=== PATIENT | male | born 1980 | race Two or more races ===

== ENCOUNTER 2024-06-29 10:26 | Emergency (ER) | payer MEDICAID, OTHER ==
[~2024-06-29] VITALS: Ht 180.3 cm; Wt 97.5 kg
[2024-06-29 11:12] VITALS: BP 120/93; PULSE 89; RESP 16; O2SAT 99
--- NOTE | 2024-06-29 14:00 | ED.PDOC ---
Musculoskeletal HPI Comments 44 year old male presents to the ED with a chief complaint of LT leg pain onset 3 days. Patient states he began experiencing LT leg/ calf pain 3 days ago. He noticed he had increased his walking prior to pain. He was diagnosed with DVT LT leg about 2 years ago, was prescribed Eliquis, stopped taking it about 1 year ago. PMHx DVT, DM. Denies injury, trauma, fall, chest pain, shortness of breath, dizziness. No other symptoms or modifying factors present at this time. Chief Complaint: Lower Extremity Time Seen by MD: 13:53 Primary Care Provider: MELONIE Hernandez Notes: Medications, Allergies Allergies: Coded Allergies: NO KNOWN ALLERGIES (Unverified , 06/29/24) Information Source: Patient Mode of Arrival: Ambulatory Location: Left Extremity Location: Calf Timing: Days Prehospital treatment: None Severity: Moderate Able to Move Extremity: Yes Bear Weight: Limited Pain: Moderate Mechanism: None Onset of Symptoms: Spontaneous Symptoms: Pain DVT Risk Factors: DVT Associated signs and symptoms: Leg pain Past Medical History PAST MEDICAL HISTORY: DM Past Medical History (Other): DVT Surgical History: Denies all surgeries Family History Family History: Reviewed,noncontributory to illness, No family hx of Cancer, No family hx of DM, No family hx of Heart diane, No family hx of HTN, No family hx ofKidney diane, No family hx of Liver diane, No family hx of Lung diane, No family hx of Stroke Social History Smoker: Non-Smoker Alcohol: Denies ETOH Use Drugs: Denies Drug Use Lives In: Home Constitutional: denies: chills, diaphoresis, fatigue, fever, malaise, sweats, weakness, others EENTM: denies: blurred vision, double vision, ear bleeding, ear discharge, ear drainage, ear pain, ear ringing, eye pain, eye redness, hearing loss, mouth pain, mouth swelling, nasal discharge, nose bleeding, nose congestion, nose pain, photophobia, tearing, throat pain, throat swelling, voice changes, others Respiratory: denies: cough, hemoptysis, orthopnea, SOB at rest, shortness of breath, SOB with excertion, stridor, wheezing, others Cardiovascular: denies: chest pain, dizzy spells, diaphoresis, Dyspnea on exertion, edema, irregular heart beat, left arm pain, lightheadedness, palpitations, PND, syncope, others Gastrointestinal: denies: abdomen distended, abdominal pain, blood streaked bowels, constipated, diarrhea, dysphagia, difficulty swallowing, hematemesis, melena, nausea, poor appetite, poor fluid intake, rectal bleeding, rectal pain, vomiting, others Genitourinary: denies: burning, dysuria, flank pain, frequency, hematuria, incontinence, penile discharge, penile sore, pain, testicle pain, testicle swelling, urgency, others Neurological: denies: dizziness, fainting, headache, left sided numbness, left sided weakness, numbness, paresthesia, pre-existing deficit, right sided numbness, right sided weakness, seizure, speech problems, tingling, tremors, weakness, others Musculoskeletal: reports: others (LT leg pain); denies: back pain, gout, joint pain, joint swelling, muscle pain, muscle stiffness, neck pain Integumetry: denies: bruises, change in color, change in hair/nails, dryness, laceration, lesions, lumps, rash, wounds, others Allergic/Immunocompromised: denies: Difficulty Healing, Frequent Infections, Hives, Itching, others Hematologic/Lymphatic: denies: anemia, blood clots, easy bleeding, easy bruising, swollen glands, others Endocrine: denies: excessive hunger, excessive sweating, excessive thirst, excessive urination, flushing, intolerance to cold, intolerance to heat, unexplained weight gain, unexplained weight loss, others Psychiatric: denies: anxiety, bipolar disorder, depression, hopeless, panic disorder, schizophrenia, sleepless, suicidal, others All Other Systems: Reviewed and Negative Physical Exam General Appearance: No Apparent Distress, Normal HEENT: Normal ENT Inspection, Pharynx Normal, TMs Normal Neck: Full Range of Motion, Non-Tender, Normal, Normal Inspection Respiratory: Chest Non-Tender, Lungs Clear, No Accessory Muscle Use, No Respiratory Distress, Normal Breath Sounds Cardiovascular: No Edema, No JVD, No Murmur, No Gallop, Normal Peripheral Pulses, Regular Rate/Rhythm Breast Exam: Deferred Gastrointestinal: No Organomegaly, Non Tender, No Pulsatile Mass, Normal Bowel Sounds, Soft Genitalia: Deferred Pelvic: Deferred Rectal: Deferred Extremities: No calf tenderness, Normal capillary refill, Normal inspection, Normal range of motion, No pedal edema, Other (Tender but not indurated not swollen and no Fahad left leg patient had history of DVT to the right leg) Musculoskeletal : Apperance: Normal Neurologic: Alert, 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 Was a procedure done?: No Differential Diagnosis EXT Differential Diagnosis: Deep Vein Thrombosis, Sprain, Strain X-Ray, Labs, Meds, VS Vital Signs Date Time Temp Pulse Resp B/P (MAP) Pulse Ox O2 Delivery O2 Flow Rate FiO2 06/29/24 12:25 Room Air* 0 21 06/29/24 11:12 89 16 120/93 (102) 99 06/29/24 10:33 97.9 89 16 134/90 (105) 98 X-Ray, Labs, Meds, VS Comment Course in the emergency department eventful patient came in complaining of pain to his left cough Ultrasound negative for DVT Patient will have some hot soaks and anti-inflammatory is Time of 1ST Reevaluation: 14:23 Reevaluation 1ST: Unchanged Patient Education/Counseling: Diagnosis, Treatment, Prognosis Family Education/Counseling: No Family Present Departure 1 Departure Time of Disposition: 15:52 Impression: Primary Impression: Sprain of left lower leg Qualified Codes: S83.92XA - Sprain of unspecified site of left knee, initial encounter Disposition: HOME / SELF CARE / HOMELESS Condition: Good Additional Instructions: Local heat and follow up with your PCP e-Prescriptions Cyclobenzaprine Hcl (Cyclobenzaprine Hcl) 10 Mg Tab 10 MG PO TID for 10 Days, #30 TAB Prov: ZARA MCNALLY MD 06/29/24 Diclofenac Potassium (Diclofenac Potassium) 50 Mg Tab 1 TAB PO TIDP for 10 Days, #30 TAB Prov: ZARA MCNALLY MD 06/29/24 Discharged With: Self Critical Care Note Critical Care Time?: No Stability Stability form required: No Heart Score Heart Score: Heart Score Response (Comments) Value History N/A 0 EKG N/A 0 Age <45 0 Risk Factors No known risk factors 0 Troponin N/A 0 Total 0 I personally scribed for ZARA MCNALLY MD ([email or web address]) on 06/29/24 at 14:00. Electronically submitted by Miguelina Melchor ([email or web address]). ZARA MCNALLY MD Jun 29, 2024 14:00
--- NOTE | 2024-06-29 15:21 | DVH ---
Procedure: US LT Lower DVT Study Date and Requested Time: 06/29/2024 02:49 PM History: DVT Comparison: None Technique: Multiple high resolution carrillo-scale images with and without compression obtained of the le ft lower extremity veins, including the common femoral vein, deep femoral vein, proximal mid and dist al superficial femoral vein, and popliteal vein. Additional limited images of the greater saphenous v ein also obtained. Augmentation performed as indicated. Color and spectral doppler flow images obtain ed as indicated. Findings: No visible intraluminal venous thrombus. No evidence of incompressibility or abnormal color or spectr al Doppler flow visualized in the left lower extremity veins including, the common femoral vein, deep femoral vein, proximal mid and distal superficial femoral vein, and popliteal vein. Greater saphenou s vein grossly unremarkable. Impression: No sonographic evidence of left lower extremity deep venous thrombosis.
[2024-06-29] MEDS ORDERED: CYCL-839 PO (15:54)
[2024-06-29] MEDS ORDERED: DICL50TA2 PO (15:54)
== END 2024-06-29 16:36 | disposition home or self-care (01) ==
LOC: ER 10:26
DX: S83.92XA Sprain of unspecified site of left knee, initial encounter (principal); E11.9 Type 2 diabetes mellitus without complications; X58.XXXA Exposure to other specified factors, initial encounter; Y93.89 Activity, other specified; Y92.89 Other specified places as the place of occurrence of the external cause; Y99.8 Other external cause status
CPT/HCPCS: 93971

== ENCOUNTER 2025-01-08 16:32 | Inpatient (IN) | payer MEDICAID ==
[~2025-01-08] VITALS: Ht 180.3 cm; Wt 103.0 kg
[~2025-01-08 16:32] MED LIST: CYCL-839 PO; DICL50TA2 PO
--- NOTE | 2025-01-08 17:59 | DVH ---
CHEST RADIOGRAPH Indication: dizzy, L shoulder pain Technique: Single frontal view of the chest was obtained Comparison: None FINDINGS: Lines and Tubes: None Lungs: No focal consolidation. Pleura: No effusion. No pneumothorax. Cardiomediastinal contours: Unremarkable Bones: No acute osseous abnormality. IMPRESSION: No acute cardiopulmonary disease.
[2025-01-08 18:01] LABS: Hematocrit 44.9 % (41.0-53.0); Hemoglobin 15.7 g/dL (13.5-17.5); Mean Corpuscular Hemoglobin 29.8 pg (28.0-32.0); Mean Corpuscular Volume 85.1 fL (80.0-100.0); Nucleated Red Blood Cells % 0.3 %
[2025-01-08 18:10] LABS: Chloride 102 mmol/L (98-107); Potassium 4.5 mmol/L (3.5-5.1); Sodium 140 mmol/L (136-145)
[2025-01-08 18:11] LABS: Anion Gap 10 (5-15); Carbon Dioxide 28 mmol/L (20-31)
[2025-01-08 18:12] LABS: Calcium 10.1 mg/dL (8.7-10.4)
[2025-01-08 18:17] LABS: BUN/Creatinine Ratio 9.5 (10.0-20.0)
[2025-01-08 18:18] LABS: Blood Urea Nitrogen 27 mg/dL (9-23); Glucose 135 mg/dL (74-106)
--- NOTE | 2025-01-08 19:10 | ED.PDOC ---
HPI (NEURO) HPI Comments 44-year-old male who presents to the ED for chief complaint of dizziness. Patient said he was at work earlier this afternoon and states while lifting boxes and moving up and down stairs, he started to feel dizzy. 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 Patient states he started to have associated left shoulder pain radiating to the left neck. Patient states he started not feel good and states he went to see the nurse at his work and states he had vitals done. Patient states that he had vitals showing blood pressure as low as 85/56 and tachycardic at 117 and was referred to the ED for further evaluation. The patient the ED is alert oriented x4 and otherwise denies any changes in gait, vision or speech. States he has been drinking fluids, and has not had any recent illness. The patient does state at a prior hospital visit he was told he may have a thyroid condition but states he was unable to follow up due to losing his insurance and states he recently obtained insurance and is able to follow up now. Patient had the ED has noted heart rate of 115 but otherwise stable vitals including temperature 98.7 F respiratory rate of 18 blood pressure 111/81 and O2 sat of 98% on room air. Patient otherwise denies chest pain , shortness of breath, headache, fever, cough, chills or any associated symptoms. Patient otherwise denies any other symptoms at this time. Chief Complaint: Dizziness Time Seen by MD: 19:01 Primary Care Provider: MELONIE Hernandez Notes: Medications, Allergies Information Source: Patient Mode of Arrival: Ambulatory Past Medical History PAST MEDICAL HISTORY: DM, HTN Surgical History: Denies all surgeries Family History Family History: Reviewed,noncontributory to illness, No family hx of Cancer, No family hx of DM, No family hx of Heart diane, No family hx of HTN, No family hx ofKidney diane, No family hx of Liver diane, No family hx of Lung diane, No family hx of Stroke Social History Smoker: Non-Smoker Alcohol: Denies ETOH Use Drugs: Denies Drug Use Lives In: Home All Other Systems: Reviewed and Negative (See HPI) Physical Exam General Appearance: No Apparent Distress HEENT: Other (Pupils and face symmetric. Moist mucous membranes.) Neck: Full Range of Motion, Normal Inspection Respiratory: Lungs Clear, No Accessory Muscle Use, No Respiratory Distress, Normal Breath Sounds Cardiovascular: No Edema, No JVD, Tachycardia Breast Exam: Deferred Gastrointestinal: Non Tender, Soft Genitalia: Deferred Pelvic: Deferred Rectal: Deferred Extremities: Normal inspection, Normal range of motion, Non-tender, No pedal edema Neurologic: Alert (Oriented x4), Normal Affect, Normal Mood, Other (Ambulatory) Cerebellar Function: NOT DONE Reflexes: NOT DONE Skin: Dry, Normal Color, Warm Lymphatic: NOT DONE EKG EKG : Comments Sinus tach, rate 114, normal intervals, normal axis, old inferior or anteroseptal infarct, nonspecific T change. Was a procedure done? Was a procedure done?: No Differential Diagnosis (SZ) CVA: Hypoglycemia, TIA General Weakness: Anemia, Dehydration, Electrolyte imbalance, Hypoglycemia, Pulmonary embolus, TIA, Other (My, hypovolemia, arrhythmia, among others) X-Ray, Labs, Meds, VS Vital Signs Date Time Temp Pulse Resp B/P (MAP) Pulse Ox O2 Delivery O2 Flow Rate FiO2 01/08/25 19:50 113 18 104/71 (82) 97 01/08/25 16:48 114 01/08/25 16:40 98.7 115 18 111/81 98 98.7 Lab Test 01/08/25 19:54 01/08/25 18:34 01/08/25 17:44 Range/Units POC Glucose 124 H 70-106 mg/dl Troponin I High Sensitivity < 3 L < 3 L </=54 ng/L Thyroid Stimulating Hormone (TSH) Pending White Blood Count 10.5 4.4-10.8 10^3/uL Red Blood Count 5.28 4.5-5.90 10^6/uL Hemoglobin 15.7 13.5-17.5 g/dL Hematocrit 44.9 41.0-53.0 % Mean Corpuscular Volume 85.1 80.0-100.0 fL Mean Corpuscular Hemoglobin 29.8 28.0-32.0 pg Mean Corpuscular Hemoglobin Concent 35.0 32.0-36.0 g/dL Red Cell Distribution Width 13.4 11.8-14.3 % Platelet Count 211 140-450 10^3/uL Mean Platelet Volume 8.7 6.9-10.8 fL Neutrophils (%) (Auto) 62.5 37.0-80.0 % Lymphocytes (%) (Auto) 29.1 10.0-50.0 % Monocytes (%) (Auto) 5.7 0.0-12.0 % Eosinophils (%) (Auto) 2.0 0.0-7.0 % Basophils (%) (Auto) 0.7 0.0-2.0 % Neutrophils # (Auto) 6.6 1.6-8.6 10 ^3/uL Lymphocytes # (Auto) 3.1 0.4-5.4 10 ^3/uL Monocytes # (Auto) 0.6 0-1.3 10 ^3/uL Eosinophils # (Auto) 0.2 0-0.8 10 ^3/uL Basophils # (Auto) 0.1 0-0.2 10 ^3/uL Nucleated Red Blood Cells 0.3 % D-Dimer, Quantitative 3.22 H 0.0-0.49 mg/L FEU Sodium Level 140 136-145 mmol/L Potassium Level 4.5 3.5-5.1 mmol/L Chloride Level 102 98-107 mmol/L Carbon Dioxide Level 28 20-31 mmol/L Anion Gap 10 5-15 Blood Urea Nitrogen 27 H 9-23 mg/dL Creatinine 2.83 H 0.700-1.30 mg/dL Glomerular Filtration Rate Calc 27 >90 mL/min BUN/Creatinine Ratio 9.5 L 10.0-20.0 Serum Glucose 135 H 74-106 mg/dL Calcium Level 10.1 8.7-10.4 mg/dL B-Type Natriuretic Peptide 0.14 0-100 pg/mL [place] [id number] Ph: [phone] DIAGNOSTIC IMAGING Diagnostic Imaging Report : [id number] Signed PATIENT: MARIO SINGH ACCT: [id number] UNIT: [id number] : 1980 LOC: ER ROOM / BED: / AGE / SEX: 44 / M ADM STATUS: REG ER SERVICE [id number] ORDERING PHYSICIAN: BESSY GREENE MD PROCEDURE(s): CXRP - CHEST PORTABLE REASON: dizzy, L shoulder pain ORDER NUMBER(s): [id number], ACCESSION NUMBER(s): [id number] CHEST RADIOGRAPH Indication: dizzy, L shoulder pain Technique: Single frontal view of the chest was obtained Comparison: None FINDINGS: Lines and Tubes: None Lungs: No focal consolidation. Pleura: No effusion. No pneumothorax. Cardiomediastinal contours: Unremarkable Bones: No acute osseous abnormality. IMPRESSION: No acute cardiopulmonary disease. ATED BY: ISABEL BOSWELL DO DICTATED DATE/TIME: 01/08/251756 SIGNED BY: ISABEL BOSWELL DO SIGNED DATE/TIME: 01/08/251756 CC: X-Ray, Labs, Meds, VS Comment 44-year-old male with a history of hypertension and diabetes complaining of lightheadedness, transient left shoulder pain radiating to the left neck, and presenting with tachycardia and transient hypotension Vitals remarkable for heart rate 115 Exam remarkable for tachycardia Rhythm strip independently interpreted by me: Sinus tach, rate 114, no ectopy. Chest x-ray unremarkable CBC normal, basic metabolic panel remarkable for BUN 27, creatinine 2.83, troponins negative, D-dimer elevated at 3.22 9 Patient treated with the following in the ED: 2 L 0.9 normal saline IV bolus CT angio chest to rule out PE considered, however patient as elevated BUN and creatinine. He appears stable at this time and can undergo V/Q scan in the morning. Plan is to admit the patient for V/Q scan to rule out PE, IV hydration, nephrology evaluation Time of 1ST Reevaluation: 22:00 Reevaluation 1ST: Improved Patient Education/Counseling: Diagnosis, Treatment Family Education/Counseling: No Family Present Departure 1 Departure Time of Disposition: 22:00 Impression: Primary Impression: Dizziness Additional Impressions: Tachycardia Elevated d-dimer Acute kidney injury Disposition: ADMITTED INPATIENT Admit to: Tele Condition: Guarded Critical Care Note Critical Care Time?: No Stability Stability form required: No Heart Score Heart Score: Heart Score Response (Comments) Value History Slightly Suspicious 0 EKG Repolarization Disturb 1 Age <45 0 Risk Factors 1 or 2 risk factors 1 Troponin Normal limit 0 Total 2 I personally scribed for BESSY GREENE MD ([email or web address]) on 01/08/25 at 19:10. Electronically submitted by Sana Zeng ([facility]). BESSY GREENE MD Jan 08, 2025 19:10
[2025-01-08] MEDS ORDERED: ONDANSETRON HCL 4 MG/2 ML VIAL IV PRN (20:30)
[2025-01-08] MEDS ORDERED: ACETAMINOPHEN 325 MG TAB PO PRN (20:30)
[2025-01-08] MEDS ORDERED: DEXTROSE (50%) 50ML SYRG IV PRN (20:30)
[2025-01-08] MEDS ORDERED: METF-912 PO (22:47)
[2025-01-08] MEDS ORDERED: LISI-285 PO (22:47)
[2025-01-08] MEDS ORDERED: DULA3INJ SC (22:47)
[2025-01-08] MEDS ORDERED: GLIP5TAB21 PO (22:47)
--- NOTE | 2025-01-08 23:28 | DVHHP2 ---
History of Present Illness Reason for Visit: Dizziness History of Present Illness 44-year-old male presents for evaluation of dizziness. Patient reports being at work lifting some boxes when he became dizzy and lightheaded. His vital signs were checked diet his place of work and was told his blood pressure was in the 90s. On arrival patient was tachycardic in the one teens blood pressure in the low 100s. He does have a history of hypertension and diabetes mellitus. Denies chest pain or shortness for breath at the moment. No other acute complaints reported. Past Medical History Diabetes mellitus and hypertension Past Surgical History Denies Family History Noncontributory Smoke: No ALCOHOL: none Drugs: None Lives: with Family Review of Systems Review of Systems Review of systems are currently negative otherwise addressed in HPI. Allergies: Coded Allergies: NO KNOWN ALLERGIES (Unverified , 06/29/24) Medications Current Medications Medications Dose Ordered Sig/Alisha Route Start Time Stop Time Status Last Admin Dose Admin Ondansetron HCl 4 mg Q4HP PRN IV 01/08/25 20:30 Acetaminophen 650 mg Q6HP PRN PO 01/08/25 20:30 Diagnostic Test (Pha) 1 strip ACHS 01/08/25 22:00 Insulin Human Regular ACHS SC 01/08/25 22:00 Dextrose 50 ml UD PRN IV 01/08/25 20:30 Exam Vital Signs Vital Signs Date Time Temp Pulse Resp B/P (MAP) Pulse Ox O2 Delivery O2 Flow Rate FiO2 01/08/25 19:50 113 18 104/71 (82) 97 01/08/25 16:40 98.7 98.7 Exam Gen: 44-year-old male in mild distress Skin: Warm, dry, normal color and texture, no rash. HEENT: Normocephalic atraumatic, mucous membranes moist and pink. Neck: Cervical and supraclavicular nodes normal without enlargement, trachea is midline, thyroid gland is normal without masses. Pulmonary: Clear to auscultation and percussion bilaterally. Cardiac: Regular rate and rhythm. No murmur Abdomen: Soft, nontender, nondistended, bowel sounds present all 4 quadrants, no guarding, no rigidity, no organomegaly. Extremities: No cyanosis, clubbing, no edema Neuro: Cranial nerves II through XII grossly intact, normal affect and speech, no focal motor deficits. Labs/Xrays ORDERING PHYSICIAN: BESSY GREENE MD PROCEDURE(s): CXRP - CHEST PORTABLE REASON: dizzy, L shoulder pain ORDER NUMBER(s): [id number], ACCESSION NUMBER(s): [id number] CHEST RADIOGRAPH Indication: dizzy, L shoulder pain Technique: Single frontal view of the chest was obtained Comparison: None FINDINGS: Lines and Tubes: None Lungs: No focal consolidation. Pleura: No effusion. No pneumothorax. Cardiomediastinal contours: Unremarkable Bones: No acute osseous abnormality. IMPRESSION: No acute cardiopulmonary disease. Labs Test 01/08/25 19:54 01/08/25 18:34 01/08/25 17:44 Range/Units POC Glucose 124 H 70-106 mg/dl Troponin I High Sensitivity < 3 L </=54 ng/L Thyroid Stimulating Hormone (TSH) 3.53 0.55-4.78 uIU/mL White Blood Count 10.5 4.4-10.8 10^3/uL Red Blood Count 5.28 4.5-5.90 10^6/uL Hemoglobin 15.7 13.5-17.5 g/dL Hematocrit 44.9 41.0-53.0 % Mean Corpuscular Volume 85.1 80.0-100.0 fL Mean Corpuscular Hemoglobin 29.8 28.0-32.0 pg Mean Corpuscular Hemoglobin Concent 35.0 32.0-36.0 g/dL Red Cell Distribution Width 13.4 11.8-14.3 % Platelet Count 211 140-450 10^3/uL Mean Platelet Volume 8.7 6.9-10.8 fL Neutrophils (%) (Auto) 62.5 37.0-80.0 % Lymphocytes (%) (Auto) 29.1 10.0-50.0 % Monocytes (%) (Auto) 5.7 0.0-12.0 % Eosinophils (%) (Auto) 2.0 0.0-7.0 % Basophils (%) (Auto) 0.7 0.0-2.0 % Neutrophils # (Auto) 6.6 1.6-8.6 10 ^3/uL Lymphocytes # (Auto) 3.1 0.4-5.4 10 ^3/uL Monocytes # (Auto) 0.6 0-1.3 10 ^3/uL Eosinophils # (Auto) 0.2 0-0.8 10 ^3/uL Basophils # (Auto) 0.1 0-0.2 10 ^3/uL Nucleated Red Blood Cells 0.3 % D-Dimer, Quantitative 3.22 H 0.0-0.49 mg/L FEU Sodium Level 140 136-145 mmol/L Potassium Level 4.5 3.5-5.1 mmol/L Chloride Level 102 98-107 mmol/L Carbon Dioxide Level 28 20-31 mmol/L Anion Gap 10 5-15 Blood Urea Nitrogen 27 H 9-23 mg/dL Creatinine 2.83 H 0.700-1.30 mg/dL Glomerular Filtration Rate Calc 27 >90 mL/min BUN/Creatinine Ratio 9.5 L 10.0-20.0 Serum Glucose 135 H 74-106 mg/dL Calcium Level 10.1 8.7-10.4 mg/dL B-Type Natriuretic Peptide 0.14 0-100 pg/mL SEPSIS Sepsis Screen Date sepsis recognized/suspect: Jan 08, 2025 Time Sepsis recognized/suspect: 1642 Recent Procedure: No (T) On Antibiotic Therapy: No (N) Respiratory Rate >20: No Heart Rate >90: No Temp<36 C (96.8 F) or >38.3 C: No SBP <90 or MAP <65 mmHG: No New Acute Mental Status Change: No Is the patient on CPAP, BIPAP,: No Physician Orders Electrocardigram (01/08/25 16:57) Chest Portable (01/08/25 17:18) Urinalysis (01/08/25 17:18) Admit (01/08/25 20:03) Basic Metabolic Panel (01/09/25 04:00) Renal Standard(2gna,3gk,Lopho) (01/09/25 Breakfast) Ondansetron Hcl (Zofran) (01/08/25 20:30) Echo 2d Mode Cardiac Dop (01/08/25 20:25) Condition: Stable (01/08/25 20:25) Acetaminophen Tablet (Tylenol Tablet) (01/08/25 20:30) Bedrest With Bathroom Privileg (01/08/25 20:25) Glucose Blood (Accu-Chek Comfort Curve T (01/08/25 22:00) Insulin R (Human) (Insulin R) (01/08/25 22:00) Dextrose 50% Syringe (01/08/25 20:30) Sodium Chloride 0.9% (01/08/25 20:30) *Dr. Cameron Elkins -[facility] (01/08/25 20:25) Vital Signs Date Time Temp Pulse Resp B/P (MAP) Pulse Ox O2 Delivery O2 Flow Rate FiO2 01/08/25 19:50 113 18 104/71 (82) 97 01/08/25 16:48 114 01/08/25 16:40 98.7 115 18 111/81 98 98.7 Laboratory Tests Test 01/08/25 17:44 White Blood Count 10.5 10^3/uL (4.4-10.8) Assessment/Plan Assessment/Plan Symptomatic hypotension Acute renal failure Diabetes mellitus Plan Admit the patient to [facility] to the hospitalist Echocardiogram pending Hold antihypertensives Nephrology consultation Maintenance IV fluids Continue treatment per orders. Plan discussed with: Patient My Orders Orders - ISABEL MACIAS Procedure Category Date Status Time Admit ADMIT 01/08/25 Transmitted 20:03 Basic Metabolic Panel LAB 01/09/25 Verified 04:00 Renal DIET 01/09/25 Transmitted Standard(2gna,3gk,Lopho) Breakfast Ondansetron Hcl PHA 01/08/25 In Process (Zofran) 20:30 Echo 2d Mode Cardiac US 01/08/25 Logged DOP 20:25 Condition: Stable DAXA 01/08/25 In Process 20:25 Acetaminophen Tablet PHA 01/08/25 In Process (Tylenol Tablet) 20:30 Bedrest With Bathroom DAXA 01/08/25 In Process Privileg 20:25 Glucose Blood PHA 01/08/25 In Process (Accu-Chek Comfort 22:00 Insulin R (Human) PHA 01/08/25 In Process (Insulin R) 22:00 Dextrose 50% Syringe PHA 01/08/25 In Process 20:30 Sodium Chloride 0.9% PHA 01/08/25 In Process 20:30 *Dr. Cameron Elkins CONS 01/08/25 Transmitted -[facility] 20:25 Date of Service: Jan 08, 2025 Billing Provider: ISABEL MACIAS Common Visit Codes: [id number] INP/OBS CARE (HIGH) ISABEL MACIAS [facility] Jan 08, 2025 23:28
[2025-01-09] VITALS (11 sets, daily range): BP systolic 105–124; BP diastolic 76–96; PULSE 92–107; RESP 12–18; TEMP 97–98.2; O2SAT 97–100
[2025-01-09] MEDS: SODIUM CHLORIDE 0.9% 2,000 ML IV ONE (00:16)
[2025-01-09] MEDS: ACCU-CHEK COMFORT CURVE STRIP VI SCH (00:19)
[2025-01-09] MEDS: InsuLIN REG 1unit/0.01ml Soln (100units/ml) SC SCH (00:19)
[2025-01-09 06:54] LABS: Chloride 104 mmol/L (98-107); Potassium 3.8 mmol/L (3.5-5.1); Sodium 140 mmol/L (136-145)
[2025-01-09 06:55] LABS: Anion Gap 10 (5-15); Carbon Dioxide 26 mmol/L (20-31)
[2025-01-09 06:58] LABS: Calcium 8.6 mg/dL (8.7-10.4)
[2025-01-09 07:00] LABS: BUN/Creatinine Ratio 10.4 (10.0-20.0)
[2025-01-09 07:01] LABS: Blood Urea Nitrogen 36 mg/dL (9-23); Glucose 110 mg/dL (74-106)
--- NOTE | 2025-01-09 10:28 | DVH ---
INDICATION: MÓNICA TECHNIQUE: Multiple real-time sonographic images of the kidneys and bladder were obtained. COMPARISON: None FINDINGS: The right kidney measures 12 cm in length, which is normal in size. There is normal echogen icity of the right kidney. No hydronephrosis. The left kidney measures 13 cm in length, which is normal in size. There is normal echogenicity of th e left kidney. No hydronephrosis. No large intraluminal masses are seen in the bladder. IMPRESSION: 1. Normal sonographic appearance of the kidneys. No hydronephrosis.
--- NOTE | 2025-01-09 10:30 | DVHCONRES ---
Date Seen: Jan 09, 2025 Resident Creating Document: DC MARTINES RESIDENT Reason for Consultation MÓNICA History of Present Illness 44-year-old male patient with past medical history of diabetes mellitus type 2 for last eight years, hypertension, DVT two years ago and stopped Eliquis one year ago, presented with complaints of dizziness. Patient went to urgent care where he was found to have low blood pressure was referred to [facility] ER. Patient received IV fluids in the ER. Nephrology was consulted for elevation in creatinine Patient does not know his baseline kidney function, mentioned hemoglobin A1c of 11-12 which is uncontrolled Currently on room air, mentioned no complaint Past medical history Diabetes mellitus Hypertension DVT Past surgical history No recent surgery Medication history Dulaglutide Glipizide Lisinopril and hydrochlorothiazide Metformin Social history Denied smoking, alcohol Mentions marijuana intake Family history Denied history of chronic kidney disease Past Medical History As described in the HPI Past Surgical History As described in the HPI Family History: Diabetes mellitus G8 MOTHER Hypertension G8 MOTHER Allergies: Coded Allergies: NO KNOWN ALLERGIES (Unverified , 06/29/24) Home Meds Reported Medications Dulaglutide (Trulicity) 3 Mg/0.5 Ml Inj, 0.5 ML SC QWEEKLY 01/08/25 Lisinopril & Hydrochlorothiazi (Lisinopril/Hydrochlorothi) 1 Tab Tab, 1 TAB PO DAILY, TAB 01/08/25 Metformin Hydrochloride (Metformin Hydrochloride E) 1,000 Mg Tab, 1000 MG PO BID 01/08/25 Glipizide (Glipizide) 5 Mg Tab, 1 TAB PO BID 01/08/25 Current Medications Current Medications Medications (Trade) Dose Ordered Sig/Alisha Route PRN Reason Start Time Stop Time Status Last Admin Ondansetron HCl (Zofran) 4 mg Q4HP PRN IV NAUSEA / VOMITING 01/08/25 20:30 Acetaminophen (Tylenol Tablet) 650 mg Q6HP PRN PO PAIN SCALE 1-3 OR TEMP>100.4 01/08/25 20:30 Diagnostic Test (Pha) (Accu-Chek Comfort Curve T) 1 strip ACHS 01/08/25 22:00 01/09/25 06:20 Insulin Human Regular (InsuLIN R) ACHS SC 01/08/25 22:00 Dextrose 50 ml UD PRN IV Blood Sugar LESS THAN 60 01/08/25 20:30 Sodium Chloride 1,000 ml @ 125 mls/hr Q8H IV 01/09/25 10:15 UNV Review of Systems Review of system as described in the HPI Vital Signs Vital Signs Date Time Temp Pulse Resp B/P (MAP) Pulse Ox O2 Delivery O2 Flow Rate FiO2 01/09/25 08:41 97.8 107 17 105/79 (88) 97 97.8 01/09/25 00:30 Room Air* 0 21 Physical Exam Examination General Appearance: Alert, Oriented X3, Cooperative, No acute distress HEENT: EOMI Respiratory: Clear to auscultation, Normal air movement Cardiovascular: Regular rate, Normal S1, Normal S2 Abdominal: Normal bowel sounds Extremities: No cyanosis, No edema, Normal pulses, No tenderness/swelling Skin: No rashes, No breakdown Neuro: Normal speech and tone Labs/Diagnostic Data Labs Test 01/09/25 06:19 01/09/25 05:50 01/08/25 18:34 01/08/25 17:44 Range/Units POC Glucose 104 70-106 mg/dl Sodium Level 140 136-145 mmol/L Potassium Level 3.8 3.5-5.1 mmol/L Chloride Level 104 98-107 mmol/L Carbon Dioxide Level 26 20-31 mmol/L Anion Gap 10 5-15 Blood Urea Nitrogen 36 H 9-23 mg/dL Creatinine 3.45 H 0.700-1.30 mg/dL Glomerular Filtration Rate Calc 22 >90 mL/min BUN/Creatinine Ratio 10.4 10.0-20.0 Serum Glucose 110 H 74-106 mg/dL Calcium Level 8.6 L 8.7-10.4 mg/dL Troponin I High Sensitivity < 3 L </=54 ng/L Thyroid Stimulating Hormone (TSH) 3.53 0.55-4.78 uIU/mL White Blood Count 10.5 4.4-10.8 10^3/uL Red Blood Count 5.28 4.5-5.90 10^6/uL Hemoglobin 15.7 13.5-17.5 g/dL Hematocrit 44.9 41.0-53.0 % Mean Corpuscular Volume 85.1 80.0-100.0 fL Mean Corpuscular Hemoglobin 29.8 28.0-32.0 pg Mean Corpuscular Hemoglobin Concent 35.0 32.0-36.0 g/dL Red Cell Distribution Width 13.4 11.8-14.3 % Platelet Count 211 140-450 10^3/uL Mean Platelet Volume 8.7 6.9-10.8 fL Neutrophils (%) (Auto) 62.5 37.0-80.0 % Lymphocytes (%) (Auto) 29.1 10.0-50.0 % Monocytes (%) (Auto) 5.7 0.0-12.0 % Eosinophils (%) (Auto) 2.0 0.0-7.0 % Basophils (%) (Auto) 0.7 0.0-2.0 % Neutrophils # (Auto) 6.6 1.6-8.6 10 ^3/uL Lymphocytes # (Auto) 3.1 0.4-5.4 10 ^3/uL Monocytes # (Auto) 0.6 0-1.3 10 ^3/uL Eosinophils # (Auto) 0.2 0-0.8 10 ^3/uL Basophils # (Auto) 0.1 0-0.2 10 ^3/uL Nucleated Red Blood Cells 0.3 % D-Dimer, Quantitative 3.22 H 0.0-0.49 mg/L FEU B-Type Natriuretic Peptide 0.14 0-100 pg/mL Assessment Assessment #MÓNICA over ?CKD, hemodynamically mediated due to hypotension -s. creat worsened from 2.83 to 3.45 # Uncontrolled DM2 # Hypertension # History of DVT Plan/Recommendation Plan strict I and O Monitor Kidney function and electrolytes IV fluids, continue at 125 cc/hour normal saline urine studies ordered including urine creat, urine sodium, urine protein, urine protein/Creat Ratio avoid lisinopril avoid nephrotoxic drugs Needs tighter control of diabetes mellitus Case discussion with Dr Ames Plan discussed with: Patient, Other ADDENDUM ADDENDUM Agree with above plan MÓNICA is hemodynamic Mike-i and HCTZ in setting of hypotension likely worsened renal perfusion and compounded MÓNICA> c/w IVF and urine studies care time 55mins DC MARTINES Jan 09, 2025 10:30 NORY AMES MD Jan 09, 2025 21:29
[2025-01-09 10:54] LABS: Triglycerides 194 mg/dL (< 150)
[2025-01-09 10:56] LABS: Cholesterol 95 mg/dL (< 200)
[2025-01-09 10:57] LABS: HDL Cholesterol 28 mg/dL (40-59)
--- NOTE | 2025-01-09 11:48 | ECG ---
[facility] Test Date: 2025-01-08 Test Time: 16:48:26 Pat Name: MARIO SINGH Department: Room: 0281 B Gender: M Pot Liner: samreen : 1980 Requested By: EMERGENCY EMERGENCY Order Number: [id number] Reading MD: Freddy Lima Measurements Intervals [place] Rate: 114 P: 22 AR: 166 QRS: 46 QRSD: 77 T: 5 QT: 307 QTc: 423 Interpretive Statements Sinus tachycardia Inferior infarct, old Electronically Signed On 01-09-2025 17:03:00 PDT by Freddy Lima Please click the below link to view image of tracing.
--- NOTE | 2025-01-09 11:56 | DVHPN2 ---
Subjective The patient is seen and examined at bedside. Per patient the patient take lisinopril/HCTZ 10/12.5 at home. Patient said this medication is new and every time he takes it he feels dizzy. Blood pressure in the hospital remained normotensive. Reviewed: Care Plan, H&P, Labs, Medications, Previous Orders, Radiology Changes from previous H/P or p: No Changes Objective Vitals Vital Signs Date Time Temp Pulse Resp B/P (MAP) Pulse Ox O2 Delivery O2 Flow Rate FiO2 01/09/25 08:41 97.8 107 17 105/79 (88) 97 97.8 01/09/25 00:30 Room Air* 0 21 Intake/Output Intake and Output 01/09/25 07:00 Intake Total 350 ml Balance 350 ml Intake Oral 350 ml # Voids 1 General Appearance: Alert, Oriented X3, Cooperative, No acute distress HEENT: Atraumatic, PERRLA, EOMI, Mucous membr. moist/pink Neck: Supple Lungs: Clear to auscultation, Normal air movement Cardiovascular: Regular rate, Normal S1, Normal S2, No murmurs, Gallops, Rubs Abdomen: Normal bowel sounds, Soft, No tenderness Neuro: Cranial nerves 3-12 NL Psych/Mental Status: Mental status NL Medications Current Medications Medications Dose Ordered Sig/Alisha Route Start Time Stop Time Status Last Admin Dose Admin Ondansetron HCl 4 mg Q4HP PRN IV 01/08/25 20:30 Acetaminophen 650 mg Q6HP PRN PO 01/08/25 20:30 Diagnostic Test (Pha) 1 strip ACHS 01/08/25 22:00 01/09/25 06:20 1 STRIP Insulin Human Regular ACHS SC 01/08/25 22:00 Dextrose 50 ml UD PRN IV 01/08/25 20:30 Sodium Chloride 1,000 ml @ 125 mls/hr Q8H IV 01/09/25 11:15 Laboratory Results Laboratory Tests 01/08/25 17:44 01/09/25 05:50 Chemistry Test 01/08/25 17:44 01/09/25 05:50 Calcium Level 10.1 mg/dL (8.7-10.4) 8.6 mg/dL (8.7-10.4) L Coagulation Test 01/08/25 17:44 D-Dimer, Quantitative 3.22 mg/L FEU (0.0-0.49) H Lipid panel Test 01/09/25 05:50 Cholesterol Level 95 mg/dL (< 200) HDL Cholesterol 28 mg/dL (40-59) L Triglycerides Level 194 mg/dL (< 150) H Cardiac Markers Test 01/08/25 17:44 B-Type Natriuretic Peptide 0.14 pg/mL (0-100) HgA1c, TSH Test 01/08/25 18:34 01/09/25 05:50 Thyroid Stimulating Hormone (TSH) 3.53 uIU/mL (0.55-4.78) Hemoglobin A1c 10.8 % A1C (<5.7) H Labs and/or images reviewed: Labs reviewed by me Assessment/Plan Assessment/Plan Symptomatic hypotension Acute renal failure Diabetes mellitus Continuing current management. We will follow up with 2D echo. Appreciate Nephrology input. IV fluid bolus with normal saline 500 mL x1 Hold hypertensive medication Continuing sliding scale insulin This medical document was created using an electronic medical record system with [employer] direct computerized dictation system. Although this document has been carefully reviewed, there may still be some phonetic and typographical errors. These areas are purely typographical due to imperfections of the software programs, and do not reflect any compromise in the patient's medical care. Plan discussed with: Patient Date of Service: Jan 09, 2025 Billing Provider: DERIK AGIURRE MD Common Visit Codes: [id number] INP/OBS CARE(HIGH) DERIK AGUIRRE MD Jan 09, 2025 11:56
--- NOTE | 2025-01-09 12:14 | DVHSR ---
APPROVED REPORT EXAM: Two-dimensional and M-mode echocardiogram with Doppler and color Doppler. Blood Pressure: 107/76 mmHg INDICATION Hypotension RISK FACTORS Height: 5'11", Weight: 221 DIMENSIONS LVDd4.4 (3.8-5.7cm)LA (2D)4.3 (1.9-4.0cm)Aortic Root3.0 (2.0-3.7cm) LVDs3.0 (2.5-4.0cm)LA (MM) (1.9-4.0cm)Aortic Cusp Exc1.8 (1.5-2.0cm) EF (%) 60.0 (55-70%)Rt. Atrium3.4 (1.9-4.0cm)Asc. Aorta3.5 cm IVSd1.0 (0.7-1.1cm)RV (D)3.8 (1.8-2.4cm) PWd0.8 (0.7-1.1cm) Mitral Valve MitralMitral Stenosis E/A ratio0.02D MVAcm2 Aortic Valve Aortic ValveAortic Stenosis V11.04m/Christine Mean GR.3mmHg V21.06m/Christine Peak GR.4mmHg LVOT Diameter2.2 (1.8-2.4cm)Doppler AVA3.73cm2 Pulmonic Valve V20.82m/s Other Information Quality : Technically LimitedRhythm : Technically limited study due to body habitus. Conclusion lvef 55-60% normal rv function left atrium enlarged no severe valve abnormalities noted
[2025-01-09] MEDS: SODIUM CHLORIDE 0.9% 500 ML IV ONE (13:22)
[2025-01-09] MEDS: SODIUM CHLORIDE 0.9% 1,000 ML IV ONE (13:22)
[2025-01-09 14:07] LABS: Urine Budding Yeast OCCASIONAL /hpf (None Seen); Urine Protein, UAD Negative (Negative)
[2025-01-09 14:15] LABS: Protein, Urine 23.3 mg/dL (1-14)
[2025-01-09] MEDS: SODIUM CHLORIDE 0.9% 1,000 ML IV SCH (14:30)
[2025-01-09] MEDS: LISINOPRIL 5 MG TAB PO ONE (15:09)
[2025-01-09 18:41] LABS: Protein, Urine 15.5 mg/dL (1-14)
[2025-01-10 01:00] VITALS: BP 104/66; PULSE 87; RESP 19; TEMP 98.3; O2SAT 98
[2025-01-10 05:00] VITALS: BP 112/86; PULSE 96; RESP 19; TEMP 98; O2SAT 97
[2025-01-10 06:09] LABS: Anion Gap 6 (5-15); Carbon Dioxide 24 mmol/L (20-31); Chloride 107 mmol/L (98-107); Potassium 4.2 mmol/L (3.5-5.1); Sodium 137 mmol/L (136-145)
[2025-01-10 06:11] LABS: Calcium 8.9 mg/dL (8.7-10.4)
[2025-01-10 06:16] LABS: BUN/Creatinine Ratio 17.0 (10.0-20.0); Magnesium 1.6 mg/dL (1.6-2.6)
[2025-01-10 06:24] LABS: Blood Urea Nitrogen 29 mg/dL (9-23); Glucose 187 mg/dL (74-106)
[2025-01-10 07:55] VITALS: PULSE 97; RESP 18; O2SAT 99
[2025-01-10 09:00] VITALS: BP 128/93; PULSE 97; RESP 18; TEMP 98; O2SAT 99
[2025-01-10] MEDS ORDERED: LISINOPRIL 5 MG TAB PO SCH (10:00)
--- NOTE | 2025-01-10 12:01 | DVHPN2 ---
Subjective The patient is seen and examined at bedside. Per patient the patient take lisinopril/HCTZ 10/12.5 at home. Patient said this medication is new and every time he takes it he feels dizzy. Blood pressure in the hospital remained normotensive. Reviewed: Care Plan, H&P, Labs, Medications, Previous Orders, Radiology Objective Vitals Vital Signs Date Time Temp Pulse Resp B/P (MAP) Pulse Ox O2 Delivery O2 Flow Rate FiO2 01/10/25 09:00 98.0 97 18 128/93 (105) 99 98.0 01/10/25 07:55 Room Air* 0 21 Intake/Output Intake and Output 01/10/25 07:00 Intake Total 2675 ml Output Total 2800 ml Balance -125 ml Intake Oral 1675 ml IV Total 1000 ml Output Urine Total 2800 ml # Bowel Movements 1 General Appearance: Alert, Oriented X3, Cooperative, No acute distress HEENT: Atraumatic, PERRLA, EOMI, Mucous membr. moist/pink Neck: Supple Lungs: Clear to auscultation, Normal air movement Cardiovascular: Regular rate, Normal S1, Normal S2, No murmurs, Gallops, Rubs Abdomen: Normal bowel sounds, Soft, No tenderness Neuro: Cranial nerves 3-12 NL Psych/Mental Status: Mental status NL Medications Current Medications Medications Dose Ordered Sig/Alisha Route Start Time Stop Time Status Last Admin Dose Admin Ondansetron HCl 4 mg Q4HP PRN IV 01/08/25 20:30 Acetaminophen 650 mg Q6HP PRN PO 01/08/25 20:30 Diagnostic Test (Pha) 1 strip ACHS 01/08/25 22:00 01/10/25 11:45 1 STRIP Insulin Human Regular ACHS SC 01/08/25 22:00 01/10/25 06:25 4 UNITS Dextrose 50 ml UD PRN IV 01/08/25 20:30 Sodium Chloride 1,000 ml @ 125 mls/hr Q8H IV 01/09/25 11:15 01/10/25 03:15 125 MLS/HR Laboratory Results Laboratory Tests 01/08/25 17:44 01/10/25 05:05 Chemistry Test 01/10/25 05:05 Calcium Level 8.9 mg/dL (8.7-10.4) Magnesium Level 1.6 mg/dL (1.6-2.6) Urinalysis Test 01/09/25 11:31 01/09/25 18:02 Urine Color Light-yellow (Yellow) Urine Clarity Clear (Clear) Urine pH 5.0 (5.0-9.0) Urine Specific [place] 1.009 (1.001-1.035) Urine Protein Negative (Negative) Urine Ketones Negative (Negative) Urine Blood Negative /uL (Negative) Urine Nitrite Negative (Negative) Urine Bilirubin Negative (Negative) Urine Urobilinogen Normal mg/dL (Negative) Urine Leukocyte Esterase Negative /uL (Negative) Urine RBC <1 /hpf (0 - 3) Urine Microscopic WBC < 1 /HPF (0-3) Urine Squamous Epithelial Cells None seen /hpf (<5) Urine Bacteria None seen /hpf (None Seen) Urine Hyaline Casts Few /lpf (0 - 2) Urine Granular Casts Few /lpf (0) Urine Mucus Few (None Seen) Urine Yeast (Budding) Occasional /hpf (None Urine Protein/Creatinine Ratio 0.29 Urine Glucose Normal mg/dL (Normal) Urine Creatinine 52.48 mg/dL (30.0-125.0) Urine Sodium 120 mmol/L (40-220) Urine Total Protein 15.5 mg/dL (1-14) H Assessment/Plan Assessment/Plan Symptomatic hypotension Acute renal failure Diabetes mellitus Continuing current management. We will follow up with 2D echo. Appreciate Nephrology input. IV fluid bolus with normal saline 500 mL x1 Hold hypertensive medication Continuing sliding scale insulin This medical document was created using an electronic medical record system with [employer] direct computerized dictation system. Although this document has been carefully reviewed, there may still be some phonetic and typographical errors. These areas are purely typographical due to imperfections of the software programs, and do not reflect any compromise in the patient's medical care. DERIK AGUIRRE MD Jan 10, 2025 12:01
[2025-01-10 13:00] VITALS: BP 131/92; PULSE 92; RESP 18; TEMP 97.8; O2SAT 98
--- NOTE | 2025-01-10 13:10 | DVHDS2 ---
Discharge Summary Date of Admission Jan 08, 2025 at 20:03 Date of Discharge: Jan 10, 2025 Admitting Diagnosis Symptomatic hypotension Acute renal failure Diabetes mellitus Labs/Diagnostic Data: Laboratory Results Test 01/10/25 11:44 01/10/25 05:05 01/09/25 18:02 01/09/25 11:31 POC Glucose 259 mg/dl (70-106) Sodium Level 137 mmol/L (136-145) Potassium Level 4.2 mmol/L (3.5-5.1) Chloride Level 107 mmol/L (98-107) Carbon Dioxide Level 24 mmol/L (20-31) Anion Gap 6 (5-15) Blood Urea Nitrogen 29 mg/dL (9-23) Creatinine 1.71 mg/dL (0.700-1.30) Glomerular Filtration Rate Calc 50 mL/min (>90) BUN/Creatinine Ratio 17.0 (10.0-20.0) Serum Glucose 187 mg/dL (74-106) Calcium Level 8.9 mg/dL (8.7-10.4) Magnesium Level 1.6 mg/dL (1.6-2.6) Urine Creatinine 52.48 mg/dL (30.0-125.0) Urine Sodium 120 mmol/L (40-220) Urine Total Protein 15.5 mg/dL (1-14) Urine Color Light-yellow (Yellow) Urine Clarity Clear (Clear) Urine pH 5.0 (5.0-9.0) Urine Specific [place] 1.009 (1.001-1.035) Urine Protein Negative (Negative) Urine Ketones Negative (Negative) Urine Blood Negative /uL (Negative) Urine Nitrite Negative (Negative) Urine Bilirubin Negative (Negative) Urine Urobilinogen Normal mg/dL (Negative) Urine Leukocyte Esterase Negative /uL (Negative) Urine RBC <1 /hpf (0 - 3) Urine Microscopic WBC < 1 /HPF (0-3) Urine Squamous Epithelial Cells None seen /hpf (<5) Urine Bacteria None seen /hpf (None Seen) Urine Hyaline Casts Few /lpf (0 - 2) Urine Granular Casts Few /lpf (0) Urine Mucus Few (None Seen) Urine Yeast (Budding) Occasional /hpf (None Urine Protein/Creatinine Ratio 0.29 Urine Glucose Normal mg/dL (Normal) Test 01/09/25 05:50 01/08/25 18:34 01/08/25 17:44 Hemoglobin A1c 10.8 % A1C (<5.7) Triglycerides Level 194 mg/dL (< 150) Cholesterol Level 95 mg/dL (< 200) LDL Cholesterol 49 mg/dL (< 100) HDL Cholesterol 28 mg/dL (40-59) Troponin I High Sensitivity < 3 ng/L (</=54) Thyroid Stimulating Hormone (TSH) 3.53 uIU/mL (0.55-4.78) White Blood Count 10.5 10^3/uL (4.4-10.8) Red Blood Count 5.28 10^6/uL (4.5-5.90) Hemoglobin 15.7 g/dL (13.5-17.5) Hematocrit 44.9 % (41.0-53.0) Mean Corpuscular Volume 85.1 fL (80.0-100.0) Mean Corpuscular Hemoglobin 29.8 pg (28.0-32.0) Mean Corpuscular Hemoglobin Concent 35.0 g/dL (32.0-36.0) Red Cell Distribution Width 13.4 % (11.8-14.3) Platelet Count 211 10^3/uL (140-450) Mean Platelet Volume 8.7 fL (6.9-10.8) Neutrophils (%) (Auto) 62.5 % (37.0-80.0) Lymphocytes (%) (Auto) 29.1 % (10.0-50.0) Monocytes (%) (Auto) 5.7 % (0.0-12.0) Eosinophils (%) (Auto) 2.0 % (0.0-7.0) Basophils (%) (Auto) 0.7 % (0.0-2.0) Neutrophils # (Auto) 6.6 10 ^3/uL (1.6-8.6) Lymphocytes # (Auto) 3.1 10 ^3/uL (0.4-5.4) Monocytes # (Auto) 0.6 10 ^3/uL (0-1.3) Eosinophils # (Auto) 0.2 10 ^3/uL (0-0.8) Basophils # (Auto) 0.1 10 ^3/uL (0-0.2) Nucleated Red Blood Cells 0.3 % D-Dimer, Quantitative 3.22 mg/L FEU (0.0-0.49) B-Type Natriuretic Peptide 0.14 pg/mL (0-100) Other Laboratory Tests 01/10/25 05:05 01/08/25 17:44 Brief Hx & Hospital Course: This is a 44 years old male come to emergency department because of dizziness. The patient was lifting some boxes at work and feel dizzy and hot lightheaded. The patient recently was started on hypertensive medication lisinopril/HCTZ 03/01 the patient said since the time he takes these medication his blood pressure had dropped really low and when he come into emergency department he was tachycardic at 100. The patient had history hypertension and diabetes. He follow up with his primary care physician and his primary care physician just prescribed him a new medication. He said he also take injection for diabetes and his diabetes controlled well at home. The patient was treated with IV fluid. Hypertensive medication change to lisinopril 5 mg one tablet p.o. daily. His blood pressure back to normal. No complain of dizziness. He able to ambulate. So I am going to discharge him home. Advised him to follow up with primary care physician 1-2 weeks. Activity as tolerated. Diet per home diet. Recommend low-salt low-cholesterol diet. Physical exam: HEENT: Normocephalic atraumatic pupils equal react to light and accommodation. Extraocular muscles intact, conjunctiva pink, oropharynx moist, no thrush, no exudate. Lymphatic: No lymphadenopathy Cardiovascular exam: S1, S2 was heard. No murmurs, rubs, gallops Lung: Clear on auscultation bilaterally, no wheeze, rale, rhonchi. GI: Abdominal soft, nondistended, nontenderness, positive bowel sounds. Extremity: No crepitus, cyanosis, edema. Pedal pulses present bilateral. Full range of motion. Skin: Normal turgor, no rash. Psych: Alert, oriented x3. Neurology: No focal deficits, cranial nerve II to XII grossly intact. This medical document was created using an electronic medical record system with [employer] direct computerized dictation system. Although this document has been carefully reviewed, there may still be some phonetic and typographical errors. These areas are purely typographical due to imperfections of the software programs, and do not reflect any compromise in the patient's medical care. Condition at Discharge: Stable Final Diagnosis/Problems List Symptomatic hypotension Acute renal failure Diabetes mellitus Discharge Disposition: Home Discharge Instruct/Medications Scheduled Dulaglutide (Trulicity), 0.5 ML SC QWEEKLY, (Reported) Glipizide (Glipizide), 1 TAB PO BID, (Reported) Lisinopril (Lisinopril), 2 TAB PO DAILY Metformin Hydrochloride (Metformin Hydrochloride E), 1,000 MG PO BID, (Reported) Discontinued Medications Lisinopril & Hydrochlorothiazi (Lisinopril/Hydrochlorothi), 1 TAB PO DAILY, (Reported) Discharge Statement: "Patient was advised to return to the ER or call 911 if any headaches, dizziness, shortness of breath, chest pain, abdominal pain, bleeding, fevers, or worsening of medical condition. Patient was counseled about treatment plan, medications, possible side effects, patientverbalized understanding. All questions were answered to the best of my ability. This discharge took greater then 30 minutes in planning, reviewing documentation, counseling the patient, and discussing with other team members." ASSESSMENT ASSESSMENT Assessment Date of Service: Jan 10, 2025 Billing Provider: DERIK AGUIRRE MD Common Visit Codes: 28986-DVL/OBS DISCH DAY >30min DERIK AGUIRRE MD Jan 10, 2025 13:10
[2025-01-10] MEDS ORDERED: LISI2.5T47 PO (13:11)
--- NOTE | 2025-01-10 13:32 | DVHPN2 ---
Progress Note Date Seen: Jan 10, 2025 Resident Creating Document: DC MARTINES RESIDENT Medical Necessity Reason Pt with a Central, PICC or Fol: No Subjective Review of Systems History of Present Illness 44-year-old male patient with past medical history of diabetes mellitus type 2 for last eight years, hypertension, DVT two years ago and stopped Eliquis one year ago, presented with complaints of dizziness. Patient went to urgent care where he was found to have low blood pressure was referred to [facility] ER. Patient received IV fluids in the ER. Nephrology was consulted for elevation in creatinine Patient does not know his baseline kidney function, mentioned hemoglobin A1c of 11-12 which is uncontrolled Currently on room air, mentioned no complaint Past medical history Diabetes mellitus Hypertension DVT Past surgical history No recent surgery Medication history Dulaglutide Glipizide Lisinopril and hydrochlorothiazide Metformin Social history Denied smoking, alcohol Mentions marijuana intake Family history Denied history of chronic kidney disease Past Medical History As described in the HPI Past Surgical History As described in the HPI 01/10/25 pt seen and examined at bedside mentions no active complaints Objective vital signs Vital Sign Date Time Temp Pulse Resp B/P (MAP) Pulse Ox O2 Delivery O2 Flow Rate FiO2 01/10/25 09:00 98.0 97 18 128/93 (105) 99 98.0 01/10/25 07:55 Room Air* 0 21 Total Intake and Output 01/09/25 01/09/25 01/10/25 15:00 23:00 07:00 Intake Total 900 ml 1775 ml Output Total 950 ml 1850 ml Balance -50 ml -75 ml medications Current Medications Medications Dose Ordered Sig/Alisha Route Start Time Stop Time Status Last Admin Dose Admin Ondansetron HCl 4 mg Q4HP PRN IV 01/08/25 20:30 Acetaminophen 650 mg Q6HP PRN PO 01/08/25 20:30 Diagnostic Test (Pha) 1 strip ACHS 01/08/25 22:00 01/10/25 11:45 1 STRIP Insulin Human Regular ACHS SC 01/08/25 22:00 01/10/25 06:25 4 UNITS Dextrose 50 ml UD PRN IV 01/08/25 20:30 Sodium Chloride 1,000 ml @ 125 mls/hr Q8H IV 01/09/25 11:15 01/10/25 03:15 125 MLS/HR Examination Examination General Appearance: Alert, Oriented X3, Cooperative, No acute distress HEENT: EOMI Respiratory: Clear to auscultation, Normal air movement Cardiovascular: Regular rate, Normal S1, Normal S2 Abdominal: Normal bowel sounds Extremities: No cyanosis, No edema, Normal pulses, No tenderness/swelling Skin: No rashes, No breakdown Neuro: Normal speech and tone laboratory and microbiology Laboratory Tests 01/10/25 05:05 01/08/25 17:44 Test 01/10/25 05:05 Range/Units Serum Glucose 187 H 74-106 mg/dL Labs and/or images reviewed: Labs reviewed by me, Image(s) reviewed by me Problem List/Assessment/Plan Problem List/Assessment/Plan Assessment #MÓNICA over ?CKD, hemodynamically mediated due to hypotension -s. creat improving from 3.45 to 1.71 # Uncontrolled DM2 # Hypertension # History of DVT Plan/Recommendation Plan strict I and O Monitor Kidney function and electrolytes IV fluids, continue at 75 cc/hour normal saline urine studies ordered including urine creat, urine sodium, urine protein, urine protein/Creat Ratio avoid nephrotoxic drugs Needs tighter control of diabetes mellitus Continue lisinopril on discharge. Avoid hydrochlorothiazide on discharge Case discussion with Dr Lin Plan discussed with: Patient, Other DC MARTINES RESIDENT Jan 10, 2025 13:32
[2025-01-10 13:57] VITALS: BP 131/92; PULSE 92; RESP 18; TEMP 97.8; O2SAT 98
[2025-01-10] MEDS: SODIUM CHLORIDE 0.9% 1,000 ML IV SCH (14:56)
== END 2025-01-10 15:15 | disposition home or self-care (01) | DRG 207 ==
LOC: ER 16:32 → OVERFLOW 20:03 → WEST WING 23:49
PROVIDERS: ADMIT Internal Medicine; ATTEND Internal Medicine
DX: I95.0 Idiopathic hypotension (principal); N17.0 Acute kidney failure with tubular necrosis; E11.65 Type 2 diabetes mellitus with hyperglycemia; I10 Essential (primary) hypertension; Z79.899 Other long term (current) drug therapy; Z86.718 Personal history of other venous thrombosis and embolism
CPT/HCPCS: 36415; 71045; 76775; 80048; 80061; 81001; 82570; 82962; 83036; 83735; 83880; 84156; 84300; 84443; 84484; 85025; 85379; 93005; 93306; G0378; J1815